=== PATIENT | female | born 1960 | race Caucasian/White ===

== ENCOUNTER → 2017-06-06 | Outpatient (CLI) | payer MEDICAID | LOC: MC.RAD 08:39 | DX: Z12.31 Encounter for screening mammogram for malignant neoplasm of breast (principal) ==

== ENCOUNTER → 2017-09-30 | Outpatient (CLI) | payer MEDICAID ==
[~2017-09-30] MED LIST: ASPIRIN 81M81 MG/TA2 PO; GEODON 40MG40 MG PO; GLUCOPHAGE1000 MG PO; HCTZ 25MG TAB25 MG PO; KLONOPIN WAFERS1 MG PO; MEVACOR 20M20 MG/TAB PO; MULTI VITAMINS1 TAB PO; PRINIVIL20 MG PO; REMERON 15M15 MG/TA1 PO; SYNTHROID0.125 MG/T PO; TOVIAZ8 MG PO; ZANTAC 150MG T150 MG PO
== END ==
LOC: COL.RAD 10:42
DX: Z01.812 Encounter for preprocedural laboratory examination (principal); I65.23 Occlusion and stenosis of bilateral carotid arteries; R06.02 Shortness of breath; Z87.891 Personal history of nicotine dependence
CPT/HCPCS: Q9967

== ENCOUNTER → 2017-10-02 | Outpatient (CLI) | payer MEDICAID ==
[~2017-10-02] VITALS: Ht 157.5 cm; Wt 91.9 kg
[2017-10-02 10:37] VITALS: BP 150/87; PULSE 110
[2017-10-02 13:38] VITALS: BP 170/70; PULSE 130
[2017-10-02 13:39] VITALS: BP 168/62; PULSE 128
[2017-10-02 13:40] VITALS: BP 164/67; PULSE 125
== END ==
LOC: COL.CARD 10:16
DX: R06.02 Shortness of breath (principal)
CPT/HCPCS: A9502; J2785

== ENCOUNTER → 2017-11-24 | Outpatient (CLI) | payer MEDICAID | LOC: COL.PUL 08:12 | DX: J81.1 Chronic pulmonary edema (principal) | CPT/HCPCS: J7674 ==

== ENCOUNTER → 2018-08-05 | Outpatient (CLI) | payer MEDICARE, MEDICAID ==
[~2018-08-05] MED LIST changes: +IMDUR 60MG60 MG/TAB PO; +NAC600 MG PO
== END ==
LOC: MC.RAD 09:00
DX: Z12.31 Encounter for screening mammogram for malignant neoplasm of breast (principal)

== ENCOUNTER → 2018-12-18 | Outpatient (CLI) | payer MEDICARE, MEDICAID | LOC: COL.RAD 08:27 | DX: Z01.818 Encounter for other preprocedural examination (principal); I65.23 Occlusion and stenosis of bilateral carotid arteries; M47.812 Spondylosis without myelopathy or radiculopathy, cervical region | CPT/HCPCS: Q9967 ==

== ENCOUNTER 2019-01-02 14:06 | Emergency (ER) | payer MEDICARE, MEDICAID ==
[~2019-01-02] VITALS: Ht 157.5 cm; Wt 79.5 kg
[2019-01-02 14:11] VITALS: TEMP 98
[2019-01-02] MEDS ORDERED: NORVASC 5MG5 MG/TAB PO (14:23)
[2019-01-02 14:56] LABS: BASO % 0.3 % (0.0-2.0); EOS # 0.1 (0.0-0.7); GRAN # 8.4 (1.4-6.5); GRAN % 69.3 % (42.2-75.2); HEMATOCRIT 37.6 % (37.0-47.0); HEMOGLOBIN 12.7 g/dl (12.5-16.0); LYMPH # 2.9 (1.2-3.4); MEAN CELL VOLUME 87 fl (80.0-100.0); MEAN CORPUSCULAR HEMOGLOBIN 30 pg (27.0-31.0); MEAN CORPUSCULAR HGB CONC 34 g/dl (33.0-37.0); MEAN PLATELET VOLUME 9.5 fl (7.4-10.4); MONO # 0.6 (0.1-0.6); PLATELET COUNT 329 K/mm3 (130-400); RED BLOOD COUNT 4.31 M/mm3 (4.10-5.30); REDCELL DISTRIBUTION WIDTH-CV 12.1 % (11.5-14.5)
[2019-01-02 15:12] LABS: ALBUMIN 4.2 gm/dL (3.5-5.0); BILIRUBIN,TOTAL 0.3 mg/dL (0.0-1.0); C-REACTIVE PROTEIN 0.9 mg/dL (0.0-0.9); CALCIUM 9.9 mg/dL (8.4-10.2); CREATININE, serum 1.03 mg/dL (0.52-1.25); POTASSIUM 5.1 mmol/L (3.4-5.0); TOTAL PROTEIN 7.2 gm/dL (6.4-8.2)
[2019-01-02 15:13] LABS: PROTHROMBIN TIME 11.7 SECONDS (9.7-12.8)
[2019-01-02 15:39] LABS: THYROID STIMULATING HORMONE 1.77 uIU/mL (0.465-4.680)
[2019-01-02 17:10] LABS: ACETAMINOPHEN < 10 ug/mL (10-30); SALICYLATE < 1.0 mg/dL
[2019-01-02 18:25] LABS: COLLECTION METHOD CLEAN CATCH
[2019-01-02 18:33] LABS: MUCOUS Present /lpf; PH 5 (5-8); SQUAMOUS EPITHELIAL 0-2 /hpf; URINE APPEARANCE Clear; URINE BACTERIA None Seen /hpf; URINE BILIRUBIN Negative (NEGATIVE); URINE BLOOD Negative (NEGATIVE); URINE COLOR Straw; URINE GLUCOSE Negative (NEGATIVE); URINE KETONE Negative (NEGATIVE); URINE LEUKOCYTE ESTERASE 1+ (NEGATIVE); URINE NITRATE Negative (NEGATIVE); URINE PROTEIN(semi-quant) Negative (NEGATIVE); URINE RBC 0-2 /hpf; URINE UROBILINOGEN Negative (NEGATIVE)
[2019-01-02 19:09] LABS: TRICYCLIC ANTIDEPRESS URINE NEGATIVE
[2019-01-02 19:25] VITALS: BP 137/75; PULSE 119
== END 2019-01-02 19:25 | disposition home or self-care (01) ==
LOC: COL.ER 14:06
PROVIDERS: Emergency Medicine; Family Medicine
DX: F25.9 Schizoaffective disorder, unspecified (principal); R25.8 Other abnormal involuntary movements; I10 Essential (primary) hypertension; Z87.891 Personal history of nicotine dependence
CPT/HCPCS: J1200; J2060; J7030

== ENCOUNTER → 2019-05-28 | Outpatient (CLI) | payer MEDICARE, MEDICAID ==
[~2019-05-28] MED LIST changes: +NORVASC 5MG5 MG/TAB PO
== END ==
LOC: COL.RAD 11:17
DX: M79.671 Pain in right foot (principal)

== ENCOUNTER 2019-10-12 15:47 | Inpatient (IN) | payer MEDICARE, MEDICAID ==
[2019-10-12] VITALS (40 sets, daily range): BP systolic 76–109; BP diastolic 43–49; PULSE 90–110; TEMP 98.7; O2SAT 97–100
[~2019-10-12] VITALS: Ht 157.5 cm; Wt 75.7 kg
[2019-10-12] MEDS ORDERED: INGREZZA80 MG (16:34)
[2019-10-12] MEDS ORDERED: NUEDEXTA 20 MG-1 CAP PO (16:34)
[2019-10-12] MEDS ORDERED: RESTORIL30 MG PO (16:35)
[2019-10-12] MEDS ORDERED: DESYREL 50MG50 MG PO (16:36)
[2019-10-12] MEDS ORDERED: KLONOPIN 1MG1 MG PO (16:36)
[2019-10-12 17:16] LABS: BASO % 0.2 % (0.0-2.0); GRAN # 18.7 (1.4-6.5); GRAN % 88.4 % (42.2-75.2); HEMOGLOBIN 11.4 g/dl (12.5-16.0); LYMPH # 0.9 (1.2-3.4); LYMPH % 4.3 % (20.0-51.0); MEAN CELL VOLUME 88 fl (80.0-100.0); MEAN CORPUSCULAR HEMOGLOBIN 29 pg (27.0-31.0); MEAN CORPUSCULAR HGB CONC 32 g/dl (33.0-37.0); MEAN PLATELET VOLUME 10.1 fl (7.4-10.4); MONO # 1.4 (0.1-0.6); MONO % 6.4 % (1.7-9.3); PLATELET COUNT 411 K/mm3 (130-400); REDCELL DISTRIBUTION WIDTH-CV 12.8 % (11.5-14.5)
[2019-10-12 17:19] LABS: HEMATOCRIT 35.3 % (37.0-47.0)
[2019-10-12 17:26] LABS: ALBUMIN 3.4 gm/dL (3.5-5.0); BILIRUBIN,TOTAL 0.4 mg/dL (0.0-1.0); CALCIUM 9.6 mg/dL (8.4-10.2); CREATININE, serum 1.8 (0.52-1.25); POTASSIUM 5.4 mmol/L (3.4-5.0); TOTAL PROTEIN 6.7 gm/dL (6.4-8.2)
--- NOTE | 2019-10-12 18:10 | NUR ---
Pt arrived to room 312 at this time. She is staring blankly and very rigid. Daughter with patient. Pt's daughter with patient. She states the patient has not been communicating effectively and uses "word salad". She reports this began a day ago, up to today she was communicating and walking. Pt a pivot transfer with assistance of two. Pt changed into a gown, tunneling coccyx ulcer visualized. Mepilex placed to coccyx. Pt offloaded with pillows. POC discussed with patient and her daughter who are in agreeance. 22 gauge started to L hand. No needs at this time. Call light within reach.
--- NOTE | 2019-10-12 19:26 | NUR ---
UA collected via straight cath, pt tolerated well. Prepping for surgery at this time.
[2019-10-12 19:29] LABS: COLLECTION METHOD CLEAN CATCH
--- NOTE | 2019-10-12 19:33 | NUR ---
Patient leaving floor for surgery at this time.
[2019-10-12 19:56] LABS: MUCOUS Present /lpf; PH 5 (5-8); SQUAMOUS EPITHELIAL None Seen /hpf; URINE APPEARANCE Cloudy; URINE BACTERIA Many /hpf; URINE BILIRUBIN Negative (NEGATIVE); URINE BLOOD 1+ (NEGATIVE); URINE COLOR Amber; URINE GLUCOSE Negative (NEGATIVE); URINE KETONE Negative (NEGATIVE); URINE LEUKOCYTE ESTERASE Trace (NEGATIVE); URINE NITRATE Negative (NEGATIVE); URINE PROTEIN(semi-quant) 1+ (NEGATIVE); URINE RBC 0-2 /hpf
--- NOTE | 2019-10-12 22:26 | NUR ---
Received telephone report from JANET Jolley from PACU.
--- NOTE | 2019-10-12 22:31 | NUR ---
Patient arrived to the unit from PACU via stretcher; patient alert but not oriented. Patient responds to questions but speech is mumbled and non-sensical. Able to follow basic commands to take a deep breath and squeeze hands bilaterally. Wound site clean, dry and intact and covered with ABD and guaze pads. Attached to all monitors. Continues to be hypotensive; hospitalist notifed and ordered to start levophed.
[2019-10-12 22:36] LABS: INR 1.2 (0.8-3.0); PROTHROMBIN TIME 13.9 SECONDS (9.7-12.8)
[2019-10-12 22:43] LABS: AMYLASE 80 U/L (30-110); LIPASE 203 U/L (23-300)
--- NOTE | 2019-10-12 22:45 | NUR ---
Dr. Lopez at bedside to see patient. Reported that patient is at her baseline mentation. No further orders at this time.
[2019-10-12 22:59] LABS: TROPONIN-I < 0.012 ng/mL (0.000-0.035)
[2019-10-12 23:28] LABS: CALCIUM 7.7 mg/dL (8.4-10.2); CREATININE, serum 1.38 (0.52-1.25); POTASSIUM 5.2 mmol/L (3.4-5.0)
[2019-10-13] VITALS (1156 sets, daily range): BP systolic 87–116; BP diastolic 48–67; PULSE 88–96; TEMP 97.7–100.6; O2SAT 87–100
--- NOTE | 2019-10-13 04:00 | NUR ---
Resting in bed with eyes open. Still follows simple commands and attempts to communicate verbally but speech is mumbled and incomprehensible. Assisted with repositioning. Will continue to monitor.
[2019-10-13 04:12] LABS: BASO % 0.2 % (0.0-2.0); EOS # 0.1 (0.0-0.7); EOS % 0.3 % (0-4.0); GRAN # 14.5 (1.4-6.5); HEMATOCRIT 28.8 % (37.0-47.0); HEMOGLOBIN 9.4 g/dl (12.5-16.0); LYMPH # 1.6 (1.2-3.4); MEAN CELL VOLUME 88 fl (80.0-100.0); MEAN CORPUSCULAR HEMOGLOBIN 29 pg (27.0-31.0); MEAN CORPUSCULAR HGB CONC 33 g/dl (33.0-37.0); MEAN PLATELET VOLUME 9.8 fl (7.4-10.4); MONO % 5.7 % (1.7-9.3); PLATELET COUNT 382 K/mm3 (130-400); RED BLOOD COUNT 3.29 M/mm3 (4.10-5.30)
[2019-10-13 04:19] LABS: ALBUMIN 2.5 gm/dL (3.5-5.0); BILIRUBIN,TOTAL 0.3 mg/dL (0.0-1.0); CALCIUM 8.3 mg/dL (8.4-10.2); CREATININE, serum 1.19 (0.52-1.25); TOTAL PROTEIN 5.3 gm/dL (6.4-8.2)
--- NOTE | 2019-10-13 07:30 | NUR ---
Bedside shift report received from JANET Montague. Patient is awake, but nonverbal. Patient's reponses are incomprehensible sounds. Full assessment completed. Bed in lowest position. Call light placed within reach. Side rails up x2. Patient's daughter at the bedside.
--- NOTE | 2019-10-13 07:34 | NUR ---
Bedside report given to JANET Luke. Patient care transfered.
[2019-10-13 08:37] LABS: CALCIUM 8.2 mg/dL (8.4-10.2); CREATININE, serum 1.07 (0.52-1.25)
--- NOTE | 2019-10-13 09:04 | NUR ---
Initial visit; Patient's daughter thanked Operations Asst for offering God's blessings to her mom and keeping her in Operations Asst's prayers.
--- NOTE | 2019-10-13 12:00 | NUR ---
Patient's daughter remains at the bedside. Patient has had no acute changes and remains mostly nonverbal or incomprehensible sounds. Full assessment completed. Bed in lowest position. Side rails up x3. Call light within reach.
--- NOTE | 2019-10-13 16:31 | NUR ---
Industrial Pipefitter Journeyman met with patient's daughter, Nubia (ph#[phone]) as patient is unable to answer questions or provide meaningful information. Patient lives in a two bedroom basement apartment in Nubia's home. Patient shares this home with Nubia [place] (ph#[phone]), and their son, Loyd. Patient's other daughter, Estefani (ph#[phone]) lives in the two bedroom basement apartment with patient and provides additional support. Patient has been seeing Aga Phelps, Nurse Practitioner for primary care but is transitioning to Dr. Mae. Patient does not use any DME and up until recently had been independent with ADLS. Nubia advised they are in the process of completing Advance Directives and had partially filled out documents that needed to be signed and witnessed. Patient unable to sign today due to altered mental status. SW to continue to follow to ensure safe discharge.
--- NOTE | 2019-10-13 19:15 | NUR ---
Bedside report received from JANET Luke. Patient care transfered. Assisted with repositioning. Light rothman drainage noted from coccyx dressing. Old dressing removed. Approximately fist sized open stage 4 ulcer noted. Wound packed with guaze soaked in Dakins and covered with ABD. Pt tolerated dressing change well. Patient is alert and able to follow simple commands. Able to tell this nurse that she is in [place] in the hospital but otherwise speech was mumbled and incomprehensible. Occasionally will demonstrate inappropriate displays of emotion such as crying then laughing with no cause.
--- NOTE | 2019-10-13 19:15 | NUR ---
Bedside shift report given to JANET Montague at this time. Patient's coccyx wound dressing assessed and changed at this time.
--- NOTE | 2019-10-13 23:00 | NUR ---
Patient noted to have an intermittent cough with occasion de-saturation of 02 to low 90's. Elevated HOB to 45. Hospitalist notified. Will consult speech to evaluate for possible aspiration.
[2019-10-14] VITALS (774 sets, daily range): BP systolic 98–144; BP diastolic 50–75; PULSE 98–121; TEMP 98.8–100.2; O2SAT 74–100
--- NOTE | 2019-10-14 02:59 | NUR ---
Patient heard moaning and crying out occasionally. Pulse rate noted to have increased slowly over the night. Patient denies pain but has difficulty communicating verballly or making needs known. Called hospitalist to request PRN pain medicaion.
[2019-10-14 06:09] LABS: BASO % 0.2 % (0.0-2.0); EOS # 0.1 (0.0-0.7); GRAN # 11.6 (1.4-6.5); GRAN % 82.4 % (42.2-75.2); LYMPH # 1.6 (1.2-3.4); LYMPH % 11.2 % (20.0-51.0); MEAN CELL VOLUME 90 fl (80.0-100.0); MEAN CORPUSCULAR HGB CONC 31 g/dl (33.0-37.0); MEAN PLATELET VOLUME 10.1 fl (7.4-10.4); MONO # 0.6 (0.1-0.6); MONO % 4.4 % (1.7-9.3); PLATELET COUNT 357 K/mm3 (130-400); RED BLOOD COUNT 3.03 M/mm3 (4.10-5.30); REDCELL DISTRIBUTION WIDTH-CV 13.2 % (11.5-14.5)
[2019-10-14 06:14] LABS: HEMATOCRIT 27.4 % (37.0-47.0); HEMOGLOBIN 8.5 g/dl (12.5-16.0); MEAN CORPUSCULAR HEMOGLOBIN 28 pg (27.0-31.0)
[2019-10-14 06:24] LABS: ALBUMIN 2.4 gm/dL (3.5-5.0); BILIRUBIN,TOTAL 0.3 mg/dL (0.0-1.0); CALCIUM 7.9 mg/dL (8.4-10.2); CREATININE, serum 0.86 (0.52-1.25); POTASSIUM 4.3 mmol/L (3.4-5.0)
--- NOTE | 2019-10-14 09:40 | NUR ---
CALLED SPEECH THERAPY TO SEE WHEN THEY WOULD BE ABLE TO EVAL PT. PT BEING KEPT NPO UNTIL SEEN.
--- NOTE | 2019-10-14 11:02 | NUR ---
CALL PLACED TO WOUND CARE REGARDING PT. STATES NO ONE HAS SPOKE WITH WOUND CARE. INFORMATION GIVEN STATES THEY WILL CALL BACK.
--- NOTE | 2019-10-14 16:10 | NUR ---
PT'S HR IN THE 120'S SINCE WORKING WITH PT OVER 30MINS AGO. OTHER VSS. PT RESTING IN BED. LISA ESPINOSA NOTIFIED. WILL CONTINUE TO YOVANI
[2019-10-14 17:06] LABS: HEMATOCRIT 29.2 % (37.0-47.0); HEMOGLOBIN 9.4 g/dl (12.5-16.0)
--- NOTE | 2019-10-14 17:36 | NUR ---
0730: WOUND CARE TO SACRAL WOUND. WET TO DRY WITH DAKINS. 1630: WOUND CARE NURSE LOTTIE BEDSIDE AND COMPLETED WOUND CARE. ORDERS CHAGNED TO DAILY.
--- NOTE | 2019-10-14 20:00 | NUR ---
Assessment complete; Patient alert but not oriented. Speech mumbled with occasional words which can be understood. Able to follow basic commands. VS stable; will continue to monitor.
[2019-10-15] VITALS (107 sets, daily range): BP systolic 110–151; BP diastolic 51–77; PULSE 93–116; TEMP 97.7–99.5; O2SAT 92–100
--- NOTE | 2019-10-15 00:24 | NUR ---
Patient heard saying " I want to go home" repeatedly. Attempted to re-orient patient regarding where she is and why she is in the hospital. Does not appear to be in any distress. Patient stated "ok" when reminded of where she is. VS stable.
--- NOTE | 2019-10-15 02:05 | NUR ---
Called report to JANET Jiang.
--- NOTE | 2019-10-15 02:33 | NUR ---
Patient transfered to medical floor at this time. VS stable upon transfer; pt alert and oriented per baseline. Assisted with dressing change to coccyx prior to transfer.
--- NOTE | 2019-10-15 02:49 | NUR ---
Arrived to medical floor from ICU. Assessment complete. Lungs clear. Heart sounds tachy-pulse 100. Bowels hyperactive. Pulses present throughout. Bilateral lower edema +2. Bilateral upper extremity edema +1. TLC right IJ flushed at this time. Dressing to coccyx changed prior to leaving ICU. Patient alert, answers yes/no questions. Able to state "I need sleep." Denies needs at this time. Call light in reach.
--- NOTE | 2019-10-15 04:45 | NUR ---
Repositioned at this time. Patient reports "butt hurts." Relieft with repositioning. Denies other needs. call light in reach.
--- NOTE | 2019-10-15 06:10 | NUR ---
Patient had uneventful night. Transferred from ICU. Repositioned Q2H. Resting in bed this AM. Call light in reach.
[2019-10-15 06:29] LABS: BASO % 0.2 % (0.0-2.0); EOS # 0.1 (0.0-0.7); EOS % 0.4 % (0-4.0); GRAN # 13.7 (1.4-6.5); LYMPH # 1.5 (1.2-3.4); LYMPH % 8.9 % (20.0-51.0); MEAN CELL VOLUME 88 fl (80.0-100.0); MEAN CORPUSCULAR HGB CONC 32 g/dl (33.0-37.0); MEAN PLATELET VOLUME 10.1 fl (7.4-10.4); MONO # 0.9 (0.1-0.6); MONO % 5.5 % (1.7-9.3); PLATELET COUNT 439 K/mm3 (130-400); RED BLOOD COUNT 3.35 M/mm3 (4.10-5.30); REDCELL DISTRIBUTION WIDTH-CV 13.1 % (11.5-14.5)
[2019-10-15 06:33] LABS: HEMATOCRIT 29.5 % (37.0-47.0); HEMOGLOBIN 9.4 g/dl (12.5-16.0); MEAN CORPUSCULAR HEMOGLOBIN 28 pg (27.0-31.0)
[2019-10-15 06:47] LABS: ALBUMIN 2.8 gm/dL (3.5-5.0); BILIRUBIN,TOTAL 0.3 mg/dL (0.0-1.0); CALCIUM 8.9 mg/dL (8.4-10.2); CREATININE, serum 0.92 (0.52-1.25); POTASSIUM 4.1 mmol/L (3.4-5.0); TOTAL PROTEIN 5.7 gm/dL (6.4-8.2)
--- NOTE | 2019-10-15 07:04 | NUR ---
Report given to JANET Jordan
--- NOTE | 2019-10-15 10:34 | NUR ---
Patient resting in bed, stuffed cat on chest. Alert to name and , confused on the year and location. VSS. IV CDI, fluids infusing. Denies pain and discomfort. Reporting that she is hungry, waiting on speech to assess, currently NPO. Adams dependent drainage clear yellow. Nursing staff reorienting patient PRN. No further needs expressed from patient. Call light within reach. Bed alarm on
--- NOTE | 2019-10-15 13:08 | NUR ---
Vancomycin Follow-up Pharmacy Note Current regimen: Vancomycin 1.5 gm IV q12h Vancomycin trough: 20.18 Adjustments: Will decrease Vancomycin to 1.25 gm IV q12h. Pharmacy will check Vancomycin trough on 10/17/19 and will continue to monitor.
--- NOTE | 2019-10-15 17:55 | NUR ---
Patient resting in bed, adriana on her chest and daughter at the bedside. Alert to name. VSS. IV CDI. TLC removed from RT neck. Adams dependent drainage sediment, yellow. Stage 4 ulcer, coccyx wet to dry dressing. Patient tolerated dressing change. Patient tolerated pureed diet. No further needs expressed from patient. Call light within reach. Bed alarm on
--- NOTE | 2019-10-15 20:19 | NUR ---
ASSESSEMENT COMPLETE. RESTING IN BED WITH TV ON. STATES "IT'S FUN TO PLAY WITH HER" AND POINTS TO RIGHT. THERE IS NO ONE PRESENT. CALM. DENIES NEEDS. DENIES PAIN. CALL LIGHT IN REACH.
[2019-10-16] VITALS (7 sets, daily range): BP systolic 128–154; BP diastolic 58–88; PULSE 89–108; TEMP 97.4–98.7
[2019-10-16 09:16] LABS: BASO % 0.2 % (0.0-2.0); EOS # 0.1 (0.0-0.7); EOS % 1.2 % (0-4.0); GRAN # 9.3 (1.4-6.5); GRAN % 80.8 % (42.2-75.2); LYMPH # 1.2 (1.2-3.4); LYMPH % 10.2 % (20.0-51.0); MEAN CELL VOLUME 88 fl (80.0-100.0); MEAN CORPUSCULAR HGB CONC 32 g/dl (33.0-37.0); MEAN PLATELET VOLUME 9.4 fl (7.4-10.4); MONO # 0.7 (0.1-0.6); MONO % 5.8 % (1.7-9.3); PLATELET COUNT 388 K/mm3 (130-400); RED BLOOD COUNT 3.15 M/mm3 (4.10-5.30); REDCELL DISTRIBUTION WIDTH-CV 13.2 % (11.5-14.5)
[2019-10-16 09:37] LABS: CALCIUM 8.6 mg/dL (8.4-10.2); CREATININE, serum 1.24 (0.52-1.25); POTASSIUM 4.1 mmol/L (3.4-5.0)
[2019-10-16 09:52] LABS: C-REACTIVE PROTEIN 14.3 mg/dL (0.0-0.9)
--- NOTE | 2019-10-16 10:00 | NUR ---
Pt assessment completed and charted, pt alert, disoriented, speech not understandable. Pt unable to describe or rate pain. Pt does not appear in distress at this time. LH INT IV flushes w/o complications. LS cta, BSx4, heart RRR. Pt has espinoza draining clear yellow urine, cath care provided. No other concerns expressed at this time.
[2019-10-16 10:02] LABS: HEMATOCRIT 27.6 % (37.0-47.0); HEMOGLOBIN 8.9 g/dl (12.5-16.0); MEAN CORPUSCULAR HEMOGLOBIN 28 pg (27.0-31.0)
[2019-10-16 10:48] LABS: ERYTHROCYTE SEDIMENTATION RATE > 140 mm/hr (0-30)
--- NOTE | 2019-10-16 18:11 | NUR ---
Pt repositioned and dressing to coccyx changed. Pt has stage 4 ulcer to bone, wet to dry dressing changed. 2 gauze rolls soaked in sterile water, wound packed, covered w./ mepalex dressing. Pt tolerated well.
--- NOTE | 2019-10-16 19:55 | NUR ---
ASSESSMENT COMPLETE. MCKEON TO KALI. RESTING IN BED,WATCHING TV. SMILES, NONSENSICAL CONVERSATION. DENIES NEEDS.
[2019-10-17 05:01] VITALS: BP 140/74; PULSE 100; TEMP 98.3
[2019-10-17 08:11] VITALS: BP 153/60; PULSE 96; TEMP 98.3
--- NOTE | 2019-10-17 09:38 | NUR ---
Pt assessment complete. Pt is sitting up in bed watching television. She is alert and able to state her birthday and that she is in [place], otherwise speech is scattered. Pt does not appear to be in any pain. Took AM pills without complications. Assisted with breakfast. Angie BASS. Awaiting vanc trough at this time. Will continue to monitor.
[2019-10-17 11:27] VITALS: BP 166/86; PULSE 111; TEMP 98.5
[2019-10-17 16:30] VITALS: BP 137/67; PULSE 99; TEMP 100.3
--- NOTE | 2019-10-17 17:49 | NUR ---
No changes through the day. Pt continued to have scattered speech. Sacral ulcer dressing changed, pt had some pain with change, PRN pain medication administered. Angie BASS. Pt repositioned through the day. Call light and bed alarm in place.
[2019-10-17 19:56] VITALS: BP 139/68; PULSE 98; TEMP 100.4
[2019-10-18 00:02] VITALS: BP 146/60; PULSE 93; TEMP 97.9
--- NOTE | 2019-10-18 01:38 | NUR ---
ASSESSMENT COMPLETE.RESTING IN BED, WATCHING TV, OCCASIONAL REFERENCES TO PERSONS UNSEEN. ORIENTED TO SELF. DENIES PAIN. REPORTS YES TO COLD. THERMOSAT AND BLANKETS ADJUSTED.
[2019-10-18 03:28] VITALS: BP 125/69; PULSE 90; TEMP 98.4
[2019-10-18 06:00] LABS: MEAN CELL VOLUME 88 fl (80.0-100.0); MEAN CORPUSCULAR HGB CONC 32 g/dl (33.0-37.0); MEAN PLATELET VOLUME 9.7 fl (7.4-10.4); PLATELET COUNT 418 K/mm3 (130-400); RED BLOOD COUNT 3.48 M/mm3 (4.10-5.30); REDCELL DISTRIBUTION WIDTH-CV 13.2 % (11.5-14.5)
[2019-10-18 06:21] LABS: BILIRUBIN,TOTAL 0.2 mg/dL (0.0-1.0); CALCIUM 8.7 mg/dL (8.4-10.2); CREATININE, serum 1.79 (0.52-1.25); POTASSIUM 3.6 mmol/L (3.4-5.0)
[2019-10-18 06:41] LABS: HEMATOCRIT 30.5 % (37.0-47.0); HEMOGLOBIN 9.8 g/dl (12.5-16.0); MEAN CORPUSCULAR HEMOGLOBIN 28 pg (27.0-31.0)
[2019-10-18 07:40] VITALS: BP 115/54; PULSE 98; TEMP 97.9
--- NOTE | 2019-10-18 07:45 | NUR ---
Pt assessment complete. Pt is laying in bed upon entry, she is pleasant and smiling. She is confused, saying she had 7 babies and was in pain. Pt received pain medication per operation shift supervisor report. Pt's bedding soaked, bedding changed and dressing to sacral ulcer changed. Pt repositioned. Does not appear to be in pain. IV to RFA flushes without complications. Bed alarm in place. Will continue to monitor.
[2019-10-18 08:25] LABS: BAND 5 % (0-10); LYMPHOCYTE 16 % (20.0-51.0); NEUTROPHILS 75 % (42.0-75.2); PLATELET ESTIMATE NORMAL (NORMAL)
[2019-10-18 11:41] VITALS: BP 124/68; PULSE 87; TEMP 98
--- NOTE | 2019-10-18 13:10 | NUR ---
Dressing to bottom changed. Pt repositioned. Complianing of pain to her bottom, PRN pain medication administered. Pt assisted in eating by NATIONAL STORMWATER LEADER. Appetite is better. Pt continues to have confusing speech talking about her 7 kids and talking about a man in her room (no family or friends present at this time), reassurance provided. Pt laying in bed holding her stuffed cat. Bed alarm in place. WIll continue to monitor.
[2019-10-18 15:36] VITALS: BP 130/63; PULSE 95; TEMP 97.7
--- NOTE | 2019-10-18 15:48 | NUR ---
SW contacted the patient's daughter, Nubia, to review discharge plan and to discuss OT's recommendation of unsafe to return home without 24/7 care. Nubia reports that the patient always has around the clock care at home, but that her and her family would be interested in post-acute rehab if qualifies. SW explained the Patient Choice Form and reviewed Medicare.gov's list of nursing homes in the [facility]. The patient's daughter chose 1) [facility] 2) [facility] [place]. Nubia gave JOSIE her verbal consent and SW placed a copy in the patient's room. SW contacted and faxed a referral to both facilities. SW awaiting their screens. The patient's daughter reports that if those facilities would not be able to accept, then they would be interested in home health services from [facility]. SW to continue to follow.
--- NOTE | 2019-10-18 16:30 | NUR ---
Pt finished eating 2oz, tolerated well. Occasional spit up reported. Eye wear replaced on patient, diaper in place. Pt placed back in isolette at this time.
--- NOTE | 2019-10-18 19:35 | NUR ---
POC discussed with patient's parents. Blood obtained by lab and this nurse. Pt back in isolette at this time.
--- NOTE | 2019-10-18 19:40 | NUR ---
Pt unchanged through the shift. Remained confused. PRN pain medications adminstered. Repositioning provided. Family at bedside at this time. Pratibha BASS.
[2019-10-18 20:30] VITALS: BP 119/53; PULSE 90; TEMP 97.4
--- NOTE | 2019-10-18 20:45 | NUR ---
Patient assessed at this time. Alert and oriented to self only. Not answering questions appropriately, smiling and talking but does not make sense. Unable to make needs known. Staff anticipates needs and provides repositioning every two hours. Denies having pain and discomfort. Peripheral IV to right forearm. NS running per orders. Started ABX per orders. Site is without redness, warmth, swelling, and pain. LS CTA in upper lobes, diminished in lower lobes. HRR. Telemetry in place normal sinus. Capillary refill less than 3 seconds. Non-tenting skin turgor. BSAx4. Abdomen soft and non-tender. Indwelling espinoza catheter in place, draining clear yellow urine via dependent drainage. Dressing to stage 4 pressure ulcer on coccyx is CDI. No edema. Resting in bed with call light within reach. High fall risk precautions in place.
[2019-10-19 00:03] VITALS: BP 101/50; PULSE 76; TEMP 98.5
[2019-10-19 03:50] VITALS: BP 98/50; PULSE 72; TEMP 98.4
--- NOTE | 2019-10-19 05:45 | NUR ---
Patient has been resting in bed awake watching TV throughout the night. Smiling and cooperative with cares. Continues to deny having pain and discomfort. Voices no questions, needs, or concerns at this time. Call light is within reach. high fall risk precautions in place.
[2019-10-19 07:42] VITALS: BP 115/65; PULSE 86; TEMP 98
--- NOTE | 2019-10-19 08:18 | NUR ---
Raquel, at [facility], reports that they are unable to accept the patient. SW to inform the patient's daughter and awaiting [facility] screen.
[2019-10-19 08:56] LABS: MEAN CELL VOLUME 88 fl (80.0-100.0); MEAN CORPUSCULAR HGB CONC 32 g/dl (33.0-37.0); MEAN PLATELET VOLUME 9.7 fl (7.4-10.4); PLATELET COUNT 367 K/mm3 (130-400); RED BLOOD COUNT 2.92 M/mm3 (4.10-5.30); REDCELL DISTRIBUTION WIDTH-CV 13.7 % (11.5-14.5)
[2019-10-19 08:59] LABS: HEMATOCRIT 25.8 % (37.0-47.0); HEMOGLOBIN 8.3 g/dl (12.5-16.0); MEAN CORPUSCULAR HEMOGLOBIN 28 pg (27.0-31.0)
[2019-10-19 09:23] LABS: BAND 8 % (0-10); EOSINOPHIL 3 % (0-4); LYMPHOCYTE 13 % (20.0-51.0); NEUTROPHILS 76 % (42.0-75.2); PLATELET ESTIMATE NORMAL (NORMAL)
--- NOTE | 2019-10-19 09:30 | NUR ---
Pt assessment completed and charted. pt alert, can state and current city but otherwise confused, scattered conversation. Pt on room air, breathing even and unlabored. pt denies pain at this time, doesn't appear to be in distress. LS cta, BSx4, pulses strong bilaterally. 1+ edema noted to bilateral hands. pt diet advanced to mechanical soft. Pt tolerated pills whole w/o complications. Medications administered per DEC. No other concerns noted at this time.
[2019-10-19 09:42] LABS: CREATININE, serum 1.81 (0.52-1.25)
--- NOTE | 2019-10-19 10:37 | NUR ---
Vancomycin Follow-up Pharmacy Note Current regimen: Holding Vancomycin due to supratherapeutic levels Vancomycin random level: 13.99 Adjustments: Will restart Vancomycin 1 gm IV q24h. Pharmacy will continue to monitor and check a Vancomycin trough prior to 3rd dose.
--- NOTE | 2019-10-19 10:49 | NUR ---
Elijah, at [facility], reports that they are able to accept the patient for a skilled stay. SW to inform the patient's daughter, Nubia, and will continue to follow.
[2019-10-19 11:30] VITALS: BP 139/60; PULSE 88; TEMP 97.8
--- NOTE | 2019-10-19 13:26 | NUR ---
JOSIE contacted and updated the patient's daughter, Nubia, on the status of referrals. Nubia is agreeable with the patient going to [facility] for a skilled stay upon discharge. JOSIE contacted and faxed updates to Elijah at [facility]. JOSIE to continue to follow.
[2019-10-19 15:35] VITALS: BP 146/63; PULSE 87; TEMP 97.8
--- NOTE | 2019-10-19 19:37 | NUR ---
Pt sacral dressing changed, using wet to dry. mepalex placed over site. 1 gauze roll used for dressing change. Pt tolerated well. No other concerns expressed.
--- NOTE | 2019-10-19 19:50 | NUR ---
Patient assessed at this time. Alert and oriented to self. Disoriented to place, time, and situation. Is answering yes and no questions. Peripheral IV to right forearm, NS running at 60 ml/hr per orders. Site is without redness, warmth, swelling, and pain. Denies SOB and dyspnea. LS CTA in upper lobes, diminished in lower lobes. Respirations even and unlabored. HRR. Telemetry in place: NS. Capillary refill less than 3 seconds. Non-tenting skin turgor. BSAx4. Abdomen soft and non-tender. Generalized edema to BUE and BLE. Dressing to stage 4 ulcer on coccyx is CDI. Indwelling espinoza catheter draining yellow urine with sand/grit looking texture via dependent drainage. Voices no questions, needs, or concerns at this time. Resting in bed watching TV. Call light is within reach. High fall risk precautions in [facility].
[2019-10-19 20:00] VITALS: BP 122/60; PULSE 16; TEMP 99.8
[2019-10-20] VITALS (7 sets, daily range): BP systolic 96–162; BP diastolic 41–80; PULSE 75–104; TEMP 98.1–99.3
--- NOTE | 2019-10-20 00:42 | NUR ---
Temp 100.8. Given PRN APAP per orders.
--- NOTE | 2019-10-20 06:10 | NUR ---
Temp 99.3. Patient has been awake each time checked on during the night. Watching TV. Has been hallucinating a man in her room during the night. High fall risk precautions remain in place.
[2019-10-20 07:16] LABS: CALCIUM 8.3 mg/dL (8.4-10.2); CREATININE, serum 1.8 (0.52-1.25)
[2019-10-20 07:21] LABS: MEAN CELL VOLUME 88 fl (80.0-100.0); MEAN CORPUSCULAR HGB CONC 32 g/dl (33.0-37.0); MEAN PLATELET VOLUME 9.7 fl (7.4-10.4); PLATELET COUNT 425 K/mm3 (130-400)
[2019-10-20 07:22] LABS: HEMATOCRIT 27.4 % (37.0-47.0); HEMOGLOBIN 8.8 g/dl (12.5-16.0); MEAN CORPUSCULAR HEMOGLOBIN 28 pg (27.0-31.0)
[2019-10-20 10:15] LABS: BAND 2 % (0-10); LYMPHOCYTE 17 % (20.0-51.0); NEUTROPHILS 81 % (42.0-75.2); PLATELET ESTIMATE INCREASED (NORMAL)
--- NOTE | 2019-10-20 10:20 | NUR ---
Pt assessment completed and charted. Morning medications administered per DEC. Pt tolerated well. Pt alert, knows birthday and city but confused conversation. Pt on tele, NS, heart RRR. pt on room air, denies SOB, breathing is even and unlabored. Pt denies pain at this time and does not appear to be in any distress. NS @60ml/hr running to RFA IV w/o complications. Bilateral hands 1+ edema noted. Pulses strong bilaterally. Pt has espinoza draining yellow urine w/ sand/grit present. Stage 4 coccyx, wet to dry dressing and mepalex covering site, CDI. No other concerns expressed at this time. Pt assisted w/ breakfast by NISHANT Cabral.
--- NOTE | 2019-10-20 18:27 | NUR ---
Dressing changed, wet to dry and new mepalex placed over dressing. pt assisted onto bedpan. Linen changed. Cath care provided. Pt received PRN tylenol prior to dressing change for pain. No other concerns expressed. Fluids dc'd and stopped.
--- NOTE | 2019-10-20 19:45 | NUR ---
Patient assessed at this time. Alert and oriented to self only. Yelling for Jose Angel, and observed [facility] on TV. Also keeps saying that she "wants to name them", unknown what "them" is. Peripheral IV to right forearm flushed. Site is without redness, warmth, swelling, and pain. When asked if she was having pain, said yes. Given PRN [place] for pain. LS CTA. Respirations even and unlabored. HRR. residential monitor in place-NS. Capillary refill less than 3 seconds. Non-tenting skin turgor. BSAx4. Abdomen soft and non-tender. 1+ edema to BUE and BLE. Indwelling espinoza catheter patent, and draining yellow urine with sand/grit texture present. Dressing to coccyx CDI. Resting in bed with call light within reach. High fall risk precautions in place.
[2019-10-21 03:20] VITALS: BP 136/78; PULSE 99; TEMP 98.1
--- NOTE | 2019-10-21 05:55 | NUR ---
Patient has denied pain and discomfort when asked. Has slept very little tonight, and awakens very easily. When awakened, patient would become very tearful, pointing to the wall and saying "hes not supposed to be here." Comforted patient. Resting in bed with call light within reach.
[2019-10-21 07:05] LABS: MEAN CELL VOLUME 89 fl (80.0-100.0); MEAN CORPUSCULAR HGB CONC 32 g/dl (33.0-37.0); MEAN PLATELET VOLUME 9.7 fl (7.4-10.4); PLATELET COUNT 411 K/mm3 (130-400); RED BLOOD COUNT 3.45 M/mm3 (4.10-5.30); REDCELL DISTRIBUTION WIDTH-CV 14.4 % (11.5-14.5)
[2019-10-21 07:06] LABS: HEMATOCRIT 30.6 % (37.0-47.0); HEMOGLOBIN 9.7 g/dl (12.5-16.0); MEAN CORPUSCULAR HEMOGLOBIN 28 pg (27.0-31.0)
[2019-10-21 07:16] LABS: CALCIUM 8.7 mg/dL (8.4-10.2); CREATININE, serum 1.66 (0.52-1.25); POTASSIUM 4.1 mmol/L (3.4-5.0)
[2019-10-21 07:23] LABS: BAND 2 % (0-10); BASOPHIL 1 % (0-2); EOSINOPHIL 3 % (0-4); LYMPHOCYTE 31 % (20.0-51.0); METAMYELOCYTE 1 % (0-0); NEUTROPHILS 61 % (42.0-75.2); PLATELET ESTIMATE NORMAL (NORMAL)
--- NOTE | 2019-10-21 07:26 | NUR ---
Report given to day shift nurse.
[2019-10-21 07:55] VITALS: BP 152/79; PULSE 102; TEMP 97.9
--- NOTE | 2019-10-21 08:50 | NUR ---
Patient resting in bed this AM. Speech thearpy here to assist with AM meal. Patient ate very little but did fine with what she did eat. Patient is alert and oriented to person, place and time (year). She does have hallucinations seeing a man that is throwing things at her and the babies that were sent home on the previous shift. There is difficulty reorienting as patient percieves this to be real. Skin w/d. Color pale. Lungs CTA with resp even unlabored. Abd rounded; soft with noted bowel sounds. Patient has espinoza for wound healing as she has a coccyx wound. PPP. Noted 2+ edema. Patient currently denies any pain/discomfort
[2019-10-21 11:38] VITALS: BP 147/69; PULSE 106; TEMP 98.2
--- NOTE | 2019-10-21 13:30 | NUR ---
Dressing change done with AM cares. Bed bath given. Dressing change done to coccyx. Noted a significant amount of serous/bloody drianage. Wound bed; pink/reddish; no odor noted from wound. Patient dressed and is ready for discharge
[2019-10-21] MEDS ORDERED: PRINIVIL10 MG PO (14:53)
[2019-10-21] MEDS ORDERED: ABILIFY20 MG PO (14:57)
[2019-10-21] MEDS ORDERED: COGENTIN .0.5 MG/TAB PO (14:57)
[2019-10-21] MEDS ORDERED: NORCO 325 MG-51 TAB PO (14:58)
[2019-10-21] MEDS ORDERED: ROCEPHIN 2GM VIAL21 IV (15:02)
--- NOTE | 2019-10-21 15:13 | NUR ---
The patient is to discharge today, 10/21, to [facility] for a skilled stay. Transportation was arranged for 1545, via [facility]. JOSIE informed the patient's daughter (Nubia) via phone and her RN. They were both in agreeance to the time. JOSIE also explained the IM form to the patient's daughter, Nubia, via phone. Nubia gave SW her verbal consent. No additional needs at this time.
[2019-10-21 15:55] VITALS: BP 147/69; PULSE 106; TEMP 98.2
--- NOTE | 2019-10-21 16:20 | NUR ---
Patient discharged to [facility] at this time.
--- NOTE | 2019-10-21 17:10 | NUR ---
Report called to JANET Leigh at [facility]. Questions answered.
== END 2019-10-21 16:30 | DRG 853 ==
LOC: MEDICAL 15:47 → IMCU 21:55 → ICU 23:16 → MEDICAL 10-15 02:30
PROVIDERS: Hospitalist; Nurse Practitioner Family; Physician Assistant; Student in an Organized Health Care Education/Training Program; Surgery; ADMIT Internal Medicine Interventional Cardiology
PROC: 05HM33Z Insertion of Infusion Device into Right Internal Jugular Vein, Percutaneous Approach (ICD-10-PCS; principal; 2019-10-12 20:00)
PROC: 0QB10ZZ Excision of Sacrum, Open Approach (ICD-10-PCS; 2019-10-12 20:00)
DX: A41.9 Sepsis, unspecified organism (principal); L89.154 Pressure ulcer of sacral region, stage 4; R65.21 Severe sepsis with septic shock; N39.0 Urinary tract infection, site not specified; N17.9 Acute kidney failure, unspecified; F05 Delirium due to known physiological condition; M86.9 Osteomyelitis, unspecified; F25.0 Schizoaffective disorder, bipolar type; I10 Essential (primary) hypertension; E78.5 Hyperlipidemia, unspecified; I27.20 Pulmonary hypertension, unspecified; I65.29 Occlusion and stenosis of unspecified carotid artery; E87.5 Hyperkalemia; E11.51 Type 2 diabetes mellitus with diabetic peripheral angiopathy without gangrene; E66.9 Obesity, unspecified; E03.9 Hypothyroidism, unspecified; E11.65 Type 2 diabetes mellitus with hyperglycemia; E87.8 Other disorders of electrolyte and fluid balance, not elsewhere classified; D64.9 Anemia, unspecified; E11.69 Type 2 diabetes mellitus with other specified complication; I25.10 Atherosclerotic heart disease of native coronary artery without angina pectoris; Z90.49 Acquired absence of other specified parts of digestive tract; Z87.891 Personal history of nicotine dependence; Z79.82 Long term (current) use of aspirin; Z79.84 Long term (current) use of oral hypoglycemic drugs; Z79.891 Long term (current) use of opiate analgesic
CPT/HCPCS: 99223; 99231-AI; 99232-AI; 99233-AI; 99239; A4314; C1751; J0610; J0696; J1644; J1815; J1940; J2250; J2270; J2370; J2543; J2704; J3010; J3370; J7030; J7050; J7060; J7120; Q9967

== ENCOUNTER 2019-10-25 09:55 | Outpatient (CLI) | payer MEDICARE, MEDICAID ==
[~2019-10-25] VITALS: Ht 157.5 cm; Wt 74.8 kg
[~2019-10-25 09:55] MED LIST changes: +ABILIFY20 MG PO; +COGENTIN .0.5 MG/TAB PO; +DESYREL 50MG50 MG PO; +INGREZZA80 MG; +KLONOPIN 1MG1 MG PO; +NORCO 325 MG-51 TAB PO; +NUEDEXTA 20 MG-1 CAP PO; +PRINIVIL10 MG PO; +RESTORIL30 MG PO; +ROCEPHIN 2GM VIAL21 IV
[2019-10-25] MEDS ORDERED: ABILIFY20 MG PO (10:10)
[2019-10-25] MEDS ORDERED: PRINIVIL10 MG PO (10:11)
[2019-10-25 10:13] VITALS: BP 140/68; PULSE 106; TEMP 98.6
[2019-10-25] MEDS ORDERED: IMDUR 60MG60 MG/TAB PO (10:14)
[2019-10-25] MEDS ORDERED: COGENTIN .0.5 MG/TAB PO (10:23)
--- NOTE | 2019-10-25 11:21 | NUR ---
Pt has remained calm and cooperative during her stay in the express unit. PICC line insertion is complete, pt is dressed and ready for transport back to [facility]. I have called report to an RN there and she stated would arrange for transport. PT resting on cot, watching TV at this time, pending transportation home. call light within reach. Adams cath drained of 175 cc urine with sediment.
== END 2019-10-25 11:36 | disposition home or self-care (01) ==
LOC: EUO 09:55
DX: Z45.2 Encounter for adjustment and management of vascular access device (principal); F25.9 Schizoaffective disorder, unspecified; Z79.2 Long term (current) use of antibiotics
CPT/HCPCS: C1751; C1892

== ENCOUNTER → 2019-11-02 | Outpatient (CLI) | payer MEDICARE, MEDICAID | LOC: BHSO 12:52 | DX: F25.0 Schizoaffective disorder, bipolar type (principal) ==

== ENCOUNTER → 2019-11-12 | Outpatient (CLI) | payer MEDICARE, MEDICAID | LOC: COL.RAD 09:30 | DX: R06.02 Shortness of breath (principal); Z95.9 Presence of cardiac and vascular implant and graft, unspecified ==

== ENCOUNTER → 2019-12-07 | Outpatient (CLI) | payer MEDICARE, MEDICAID | LOC: BHSO 10:52 | DX: F25.0 Schizoaffective disorder, bipolar type (principal) | CPT/HCPCS: G0463 ==

== ENCOUNTER → 2019-12-21 | Outpatient (CLI) | payer MEDICARE, MEDICAID | LOC: BHSO 11:08 | DX: F25.0 Schizoaffective disorder, bipolar type (principal) ==

== ENCOUNTER → 2020-03-07 | Outpatient (CLI) | payer MEDICARE, MEDICAID | LOC: BHSO 13:00 | DX: F25.0 Schizoaffective disorder, bipolar type (principal) | CPT/HCPCS: G0463 ==

== ENCOUNTER → 2020-06-02 | Outpatient (CLI) | payer MEDICARE, MEDICAID | LOC: COL.RAD 11:05 | DX: I65.22 Occlusion and stenosis of left carotid artery (principal) | CPT/HCPCS: Q9967 ==

== ENCOUNTER → 2021-09-04 | Outpatient (CLI) | payer MEDICARE, MEDICAID | LOC: MC.RAD 15:36 | DX: Z12.31 Encounter for screening mammogram for malignant neoplasm of breast (principal) ==

== ENCOUNTER 2022-01-23 09:34 | Outpatient (RCR) | payer MEDICARE, MEDICAID | END 2022-01-24 | disposition home or self-care (01) | LOC: WSST | DX: R13.10 Dysphagia, unspecified (principal) ==

== ENCOUNTER → 2022-01-29 | Outpatient (CLI) | payer MEDICARE, MEDICAID | LOC: COL.RAD 15:06 | DX: R13.10 Dysphagia, unspecified (principal) ==

== ENCOUNTER → 2022-08-30 | Outpatient (CLI) | payer MEDICARE, MEDICAID | LOC: COL.LAB 10:26 | DX: R77.8 Other specified abnormalities of plasma proteins (principal) ==

== ENCOUNTER → 2023-08-21 | Outpatient (CLI) | payer MEDICARE, MEDICAID | LOC: MC.RAD 08:02 | DX: Z12.31 Encounter for screening mammogram for malignant neoplasm of breast (principal) ==